=== PATIENT | female | born 1955 | race Caucasian/White ===

== ENCOUNTER 2021-06-18 15:07 | Emergency (ER) | payer OTHER ==
[~2021-06-18] VITALS: Ht 167.6 cm; Wt 66.0 kg
[2021-06-18] MEDS ORDERED: DIATR MEGLU/DIATRIZOATE SOLN 30ML ONE (17:05)
[2021-06-18 19:10] VITALS: BP 123/78
== END 2021-06-18 19:10 | disposition home or self-care (01) ==
LOC: ER 15:07
DX: K94.23 Gastrostomy malfunction (principal); I49.9 Cardiac arrhythmia, unspecified; Z88.5 Allergy status to narcotic agent; Z98.890 Other specified postprocedural states
CPT/HCPCS: 43762; 74018; 93005; 99284; Q9963; Z7610; 43760

== ENCOUNTER 2022-11-12 08:58 | Emergency (ER) | payer MEDICARE, OTHER ==
[~2022-11-12] VITALS: Ht 172.7 cm; Wt 60.0 kg
[2022-11-12 10:00] LABS: BASOPHILS % 0.4 % (0.0-2.0); EOSINOPHILS % 3.9 % (0.0-5.0); HEMOGLOBIN. 12.1 g/dL (12.0-16.0); LYMPHOCYTES % 43.2 % (20.0-50.0); MEAN CORPUSCULAR HEMOGLOBIN 29.4 pg (28.0-32.0); MEAN CORPUSCULAR VOLUME 90.3 fL (81.0-99.0); MEAN PLATELET VOLUME 8.2 fl (7.4-10.4); MONOCYTES % 5.8 % (2.0-8.0); NEUTROPHILS % 46.7 % (40.0-76.0); PLATELET 243 x1000/uL (130-400); RED CELL DISTRIBUTION WIDTH 13.8 % (11.6-14.6)
[2022-11-12 10:09] LABS: CHLORIDE 102 mEq/L (98-107)
[2022-11-12 10:31] LABS: PROTHROMBIN TIME 10.8 sec (9.6-11.0)
[2022-11-12] MEDS ORDERED: LIDOCAINE HCL 1% 10 MG/ML 10ML VIAL ONE (11:16)
[2022-11-12] MEDS ORDERED: IOHEXOL-300 50 ML BOTTLE IV ONE (11:16)
[2022-11-12] MEDS ORDERED: LIDOCAINE HCL 2% JELLY 5ML ONE (12:57)
[2022-11-12] MEDS ORDERED: SODIUM CHLORIDE 0.9% 1,000 ML IV SCH (13:00)
[2022-11-12] MEDS ORDERED: DIPHENHYDRAMINE 50MG/ML VIAL IV PRN (13:00)
[2022-11-12] MEDS ORDERED: CLONIDINE 0.1MG TABLET PO PRN (13:00)
[2022-11-12] MEDS ORDERED: IPRATROPIUM/ALBUTEROL 0.5-3(2.5)MG/3ML NEB HHN PRN (13:00)
[2022-11-12] MEDS ORDERED: ACETAMINOPHEN 325MG TABLET PO PRN (13:00)
[2022-11-12] MEDS ORDERED: ONDANSETRON HCL 4MG/2ML INJ IV PRN (13:00)
[2022-11-12 19:16] VITALS: BP 118/59
== END 2022-11-12 19:18 | disposition hospice, home (50) ==
LOC: ER 08:58 → EDBEDREQSVC 12:12 → EDBEDREQTM 12:12 → EDBEDREQ 12:12 → CANBEDREQ 15:50 → ER 19:18
DX: K94.23 Gastrostomy malfunction (principal); I49.9 Cardiac arrhythmia, unspecified; Z20.822 Contact with and (suspected) exposure to COVID-19
CPT/HCPCS: 36415; 36598; 49450; 80053; 83880; 84484; 85025; 85610; 87426; 93005; 93970; 96360; 96361; 99285; C1769; C9803; J3490; Q9967